=== PATIENT | male | born 1945 | race Caucasian/White ===

== ENCOUNTER → 2017-03-18 | Outpatient (CLI) | payer MEDICARE, OTHER ==
[~2017-03-18] MED LIST: ASPIRIN PO; CRESTOR40 MG PO; FISH OIL 1,0001 CAP PO; FLEXERIL PO; HYDROCODON-ACE1 EAC7 PO; MULTI-VITAMIN1 TAB PO; MUSCLE RELAXER; NAPROSYN-EC500 M1 PO; PAIN PILL; PRILOSEC PO; ZETIA PO; ZOCOR PO; ZOLOFT PO; [UNRECOGNIZED DRUG - REMARK]
--- NOTE | ~2017-03-18 | ST ---
Unit #: [id number] #: [id number] Patient: SHIRLEY GONZALEZ [id number] [facility]. [address] [address] [id number] O MR#: [id number] NAME: SHIRLEY GONZALEZ : 1945 SEX: M STUDY DATE/TIME: 03/18/2017 UNIT: [facility] ROOM: STUDY DESCRIPTION: Attending Physician: Chalino Hurt M.D. Referring Physician: Chalino Hurt M.D. Primary Care Physician: Chalino Hurt M.D. CARDIOLOGY REPORT EXAM EKG portion of Cardiolite exercise stress test. REASON FOR EXAMINATION Intermittent diaphoresis. FINDINGS Baseline EKG is sinus rhythm with nonspecific T-wave abnormalities. PROCEDURE The patient exercised on the treadmill according to the Rey protocol for 10 minutes and 36 seconds, achieving a work level of 10.4 METs. Resting heart rate was 68. Maximal heart rate was 133, representing 89% of max predicted age heart rate. The patient's symptoms were fatigue and shortness of breath. The Rey protocol was modified in stage 3 due to fatigue. No arrhythmias or ST changes were noted. The test was stopped due to achieving target heart rate. This is a negative test. There were no ST segment changes. The patient experienced some fatigue and shortness of air and the protocol was modified in stage 3. There were no arrhythmias. Please correlate with Cardiolite imaging. Dictated by... Shanon Martínez APRN for Luz Marina Moser TD: 03/18/2017 10:46 JOB #: [id number] CARDIOLOGY REPORT Page 1 of 1 X CARDIOLOGY REPORT
--- NOTE | ~2017-03-18 | TH ---
Unit #: [id number] #: [id number] Patient: SHIRLEY GONZALEZ [id number] [address] [address] [id number] O MR#: [id number] NAME: SHIRLEY GONZALEZ. : 1945 SEX: M STUDY DATE/TIME: 03/18/2017 UNIT: [facility] ROOM: STUDY DESCRIPTION: Attending Physician: Chalino Hurt M.D. Referring Physician: Chalino Hurt M.D. Primary Care Physician: Chalino Hurt M.D. CARDIOLOGY REPORT EXAM Exercise Cardiolite stress test, nuclear portion. PROCEDURE Using technetium 99m labeled Cardiolite, rest and stress SPECT images were obtained. Multiple SPECT images were obtained in various views including horizontal and vertical long axis and short axis views of the left ventricle. Images were obtained by gated SPECT method. The patient was administered 11.92 mCi of Cardiolite at rest. The patient was administered 33.6 mCi of Cardiolite at peak exercise. Total exercise time is 10 minutes and 36 seconds on a modified Rey protocol. On the stress images, there is a small area of moderate decreased isotope activity involving the inferior wall. The rest images show a larger area of moderate decreased isotope activity involving the inferior wall. Comparing rest and stress images, there is a small area of predominantly fixed defect seen inferiorly, larger on the rest images consistent with soft tissue artifact. The left ventricular ejection fraction is calculated to be 56%. There is no focal wall motion abnormality seen. CONCLUSION 1. No stress-induced ischemia noted. 2. The small area of predominantly fixed defect seen inferiorly is most likely due to soft tissue artifact. 3. The left ventricular ejection fraction is calculated to be 56%. 4. There is no focal wall motion abnormality seen. 5. Normal exercise Cardiolite stress test. Dictated by.Luz Marina Evans TD: 03/18/2017 11:22 JOB #: [id number] CC: Chalino Hurt M.D. Unit #: [id number] #: [id number] Patient: SHIRLEY GONZALEZ CARDIOLOGY REPORT Page 1 of 1 X Nancy Kelley MD <ELECTRONICALLY SIGNED> 05/01/17 1524 CARDIOLOGY REPORT
== END | disposition home or self-care (01) ==
LOC: CNUC 07:39
DX: R06.02 Shortness of breath (principal); R53.83 Other fatigue; R68.83 Chills (without fever); F17.200 Nicotine dependence, unspecified, uncomplicated
CPT/HCPCS: 78452; 93017; A9500